=== PATIENT | male | born 2005 | race Two or more races ===

== ENCOUNTER 2025-06-13 13:15 | Emergency (ER) | payer OTHER ==
[~2025-06-13] VITALS: Ht 185.4 cm; Wt 78.6 kg
[2025-06-13 14:11] LABS: PLATELET COUNT, AUTOMATED 222 10^3/uL (150-450)
[2025-06-13] MEDS ORDERED: HOME MED LIST COMPLETE! XX SCH (14:50)
[2025-06-13 14:55] LABS: AMPHETAMINES LEVEL URINE NEGATIVE (NEGATIVE)
[2025-06-13 14:56] LABS: BARBITURATES URINE NEGATIVE (NEGATIVE); BENZODIAZEPINES URINE NEGATIVE (NEGATIVE); CANNABINOIDS URINE NEGATIVE (NEGATIVE); COCAINE METABOLITE URINE NEGATIVE (NEGATIVE); METHADONE URINE NEGATIVE (NEGATIVE); OPIATES URINE NEGATIVE (NEGATIVE); PHENCYCLIDINE URINE NEGATIVE (NEGATIVE)
[2025-06-13 15:42] LABS: ETHYL ALCOHOL (ETHANOL) 0.009 % (0.000-0.010)
[2025-06-13 15:43] LABS: ALT/SGPT 28 U/L (7.0-40); AST/SGOT 19 U/L (<34); CALCIUM LEVEL 9.3 MG/DL (8.5-10.1); CARBON DIOXIDE LEVEL 22 MMOL/L (20-31); CHLORIDE LEVEL 103 MMOL/L (98-107); CREATININE FOR GFR 0.87 MG/DL (0.70-1.30); GLOMERULAR FILTRATION RATE > 90.0 (>60); POTASSIUM SERUM 3.8 MMOL/L (3.5-5.1); SALICYLATE LEVEL < 3.0 MG/DL (<30); SODIUM LEVEL 141 MMOL/L (136-145)
[2025-06-13 18:10] VITALS: BP 139/80; TEMP 98; O2SAT 98
== END 2025-06-13 18:55 | disposition home or self-care (01) ==
LOC: M ED 13:15 → EDBD 13:15 → M ED 18:55
DX: F10.10 Alcohol abuse, uncomplicated (principal); F32.A Depression, unspecified